=== PATIENT | female | born 1960 | race Caucasian/White ===

== ENCOUNTER 2018-09-21 09:58 | Emergency (ER) | payer MEDICAID ==
[~2018-09-21] VITALS: Ht 162.6 cm; Wt 46.8 kg
[2018-09-21 10:01] VITALS: BP 130/89
[2018-09-21] MEDS ORDERED: HYDR-4383 PO (11:35)
== END 2018-09-21 11:54 | disposition home or self-care (01) ==
LOC: ER 09:59
DX: K46.9 Unspecified abdominal hernia without obstruction or gangrene (principal); R10.32 Left lower quadrant pain; G89.29 Other chronic pain; Z79.899 Other long term (current) drug therapy
CPT/HCPCS: 99283

== ENCOUNTER 2018-09-23 10:51 | Emergency (ER) | payer MEDICAID ==
[~2018-09-23] VITALS: Ht 162.6 cm; Wt 46.1 kg
[~2018-09-23 10:51] MED LIST: HYDR-4383 PO
[2018-09-23 11:03] VITALS: BP 134/95
[2018-09-23] MEDS ORDERED: GABA-532 PO (13:10)
[2018-09-23] MEDS ORDERED: HYDROcodone/acetaminophen 10/325mg tab PO ONE (13:10)
== END 2018-09-23 13:51 | disposition home or self-care (01) ==
LOC: ER 10:52
DX: R10.13 Epigastric pain (principal); G89.29 Other chronic pain
CPT/HCPCS: 99283